=== PATIENT | female | born 1980 | race Caucasian/White ===

== ENCOUNTER 2019-08-20 15:13 | Emergency (ER) | payer OTHER ==
--- NOTE | 2019-08-20 15:33 | EDM.PDOC ---
ED HPI GENERAL MEDICAL PROBLEM - General Chief Complaint: Abdominal Pain Stated Complaint: LOWER BACK RT SIDE PAIN Time Seen by Provider: 08/20/19 15:32 Source of Information: Reports: Patient History Limitations: Reports: No Limitations - History of Present Illness INITIAL COMMENTS - FREE TEXT/NARRATIVE: HISTORY AND PHYSICAL: History of present illness: Patient is a 39-year-old female presents to the ED with complaint of flank pain. Patient states pain started this morning. Pain is in her right back/flank and wraps around to the right upper abdomen. She states pain comes and goes and there are no eliciting factors. She states she took some aleve and this did help. She denies fevers, chills, nausea, vomiting, chest pain, shortness of breath, diarrhea, constipation, hematuria, dysuria. She reports she just finished her period. Denies any history of abdominal surgeries. Review of systems: As per history of present illness and below otherwise all systems reviewed and negative. Past medical history: As per history of present illness and as reviewed below otherwise noncontributory. Surgical history: As per history of present illness and as reviewed below otherwise noncontributory. Social history: No reported history of drug or alcohol abuse. Family history: As per history of present illness and as reviewed below otherwise noncontributory. Physical exam: General: Patient sitting comfortably in no acute distress and nontoxic appearing HEENT: Atraumatic, normocephalic, pupils reactive, negative for conjunctival pallor or scleral icterus, mucous membranes moist, throat clear, neck supple, nontender, trachea midline. No meningeal signs. Lungs: Clear to auscultation, breath sounds equal bilaterally, chest nontender. Heart: S1S2, regular, negative for clicks, rubs, or overt murmur. Abdomen: Soft, nondistended, Minimal RUQ tenderness to palpation. Negative for masses or hepatosplenomegaly. Negative for costovertebral tenderness. No rigidity, rebound, guarding. Pelvis: Stable nontender. Genitourinary: Deferred. Rectal: Deferred. Extremities: Atraumatic, negative for cords or calf pain. Neurovascular unremarkable. Neuro: Awake, alert, oriented. Cranial nerves II through XII unremarkable. Cerebellum unremarkable. Motor and sensory unremarkable throughout. Exam nonfocal. Notes: Discussed with patient getting RUQ US and possibility of gallstones. Patient declines and states her pain is manageable with aleve and will follow up with her PCP for further evaluation. She was advised to return to the ED if any new or worsening symptoms. Diagnostics: CBC, CMP, lipase, UA Therapeutics: 1L NS IV Prescriptions: Impression: RUQ abdominal pain Plan: Alternate tylenol and motrin as needed Follow up with primary care provider Return to ED as needed as discussed Definitive disposition and diagnosis as appropriate pending reevaluation and review of above. R Flank Pain Score (Numeric/FACES): 7 - Related Data Allergies Allergy/AdvReac Type Severity Reaction Status Date / Time No Known Allergies Allergy Verified 08/20/19 15:28 Home Meds: Home Meds Sertraline [Zoloft] 10 mg PO DAILY 08/20/19 [History] ED ROS GENERAL - Review of Systems Review Of Systems: Comprehensive ROS is negative, except as noted in HPI. ED EXAM, RENAL/ - Physical Exam Exam: See Below (see dictation) Course - Vital Signs Last Recorded V/S: Last Vital Signs Temp 96.7 F L 08/20/19 15:16 Pulse 90 08/20/19 15:16 Resp 17 08/20/19 15:16 BP 136/77 08/20/19 15:16 Pulse Ox 98 08/20/19 15:16 - Orders/Labs/Meds Labs: Laboratory Tests 08/20/19 08/20/19 08/20/19 Range/Units 15:15 15:34 15:34 WBC 6.96 (4.0-11.0) K/uL RBC 4.78 (4.30-5.90) M/uL Hgb 14.1 (12.0-16.0) g/dL Hct 42.0 (36.0-46.0) % MCV 87.9 (80.0-98.0) fL MCH 29.5 (27.0-32.0) pg MCHC 33.6 (31.0-37.0) g/dL RDW Std Deviation 41.9 (28.0-62.0) fl RDW Coeff of Carlos 13 (11.0-15.0) % Plt Count 284 (150-400) K/uL MPV 10.00 (7.40-12.00) fL Neut % (Auto) 65.4 (48.0-80.0) % Lymph % (Auto) 21.7 (16.0-40.0) % Crowley % (Auto) 8.5 (0.0-15.0) % Eos % (Auto) 3.4 (0.0-7.0) % Baso % (Auto) 1.0 (0.0-1.5) % Neut # (Auto) 4.6 (1.4-5.7) K/uL Lymph # (Auto) 1.5 (0.6-2.4) K/uL Crowley # (Auto) 0.6 (0.0-0.8) K/uL Eos # (Auto) 0.2 (0.0-0.7) K/uL Baso # (Auto) 0.1 (0.0-0.1) K/uL Nucleated RBC % 0.0 /100WBC Nucleated RBCs # 0 K/uL Sodium 140 (136-145) mmol/L Potassium 3.9 (3.5-5.1) mmol/L Chloride 103 (98-107) mmol/L Carbon Dioxide 27.4 (21.0-32.0) mmol/L BUN 13 (7.0-18.0) mg/dL Creatinine 0.8 (0.6-1.0) mg/dL Est Cr Clr Drug Dosing 80.72 mL/min Estimated GFR (MDRD) > 60.0 ml/min Glucose 89 (74-106) mg/dL Calcium 8.8 (8.5-10.1) mg/dL Total Bilirubin 0.6 (0.2-1.0) mg/dL AST 22 (15-37) IU/L ALT 24 (14-63) IU/L Alkaline Phosphatase 56 (46-116) U/L Total Protein 7.3 (6.4-8.2) g/dL Albumin 4.2 (3.4-5.0) g/dL Globulin 3.1 (2.6-4.0) g/dL Albumin/Globulin Ratio 1.4 (0.9-1.6) Lipase 152 (73-393) U/L Urine Color YELLOW Urine Appearance CLEAR Urine pH 7.0 (5.0-8.0) Ur Specific [place] 1.010 (1.001-1.035) Urine Protein NEGATIVE (NEGATIVE) mg/dL Urine Glucose (UA) NEGATIVE (NEGATIVE) mg/dL Urine Ketones NEGATIVE (NEGATIVE) mg/dL Urine Occult Blood TRACE-INTACT H (NEGATIVE) Urine Nitrite NEGATIVE (NEGATIVE) Urine Bilirubin NEGATIVE (NEGATIVE) Urine Urobilinogen 0.2 (<2.0) EU/dL Ur Leukocyte Esterase NEGATIVE (NEGATIVE) Urine RBC 0-1 (0-2/HPF) Urine WBC 0-1 (0-5/HPF) Ur Epithelial Cells OCCASIONAL (NONE-FEW) Urine Bacteria RARE (NEGATIVE) Meds: Medications Discontinued Medications Generic Name Dose Route Start Last Admin Trade Name Stephanie PRN Reason Stop Dose Admin Sodium Chloride 1,000 mls @ 999 mls/hr 08/20/19 15:38 08/20/19 15:50 Normal Saline IV 08/20/19 16:38 999 mls/hr STAT ONE Administration Departure - Departure Time of Disposition: 16:42 Disposition: Home, Self-Care 01 Condition: Good Clinical Impression: RUQ abdominal pain - Discharge Information Referrals: Ebenezer Dunaway MD [Primary Care Provider] - Forms: ED Department Discharge Additional Instructions: The following information is given to patients seen in the emergency department who are being discharged to home. This information is to outline your options for follow-up care. We provide all patients seen in our emergency department with a follow-up referral. The need for follow-up, as well as the timing and circumstances, are variable depending upon the specifics of your emergency department visit. If you don't have a primary care physician on staff, we will provide you with a referral. We always advise you to contact your personal physician following an emergency department visit to inform them of the circumstance of the visit and for follow-up with them and/or the need for any referrals to a consulting specialist. The emergency department will also refer you to a specialist when appropriate. This referral assures that you have the opportunity for follow-up care with a specialist. All of these measure are taken in an effort to provide you with optimal care, which includes your follow-up. Under all circumstances we always encourage you to contact your private physician who remains a resource for coordinating your care. When calling for follow-up care, please make the office aware that this follow-up is from your recent emergency room visit. If for any reason you are refused follow-up, please contact the [facility] Emergency Department at and asked to speak to the emergency department charge nurse. [facility] [address] [place] [address] [facility] [address] [place] [id number] Alternate tylenol and motrin as needed Follow up with primary care provider Return to ED as needed as discussed Sepsis Event Note - Evaluation Sepsis Screening Result: No Definite Risk - Focused Exam Vital Signs: Vital Signs Temp Pulse Resp BP Pulse Ox 08/20/19 15:16 96.7 F L 90 17 136/77 98 Date Exam was Performed: 08/20/19 Time Exam was Performed: 16:40
[2019-08-20] MEDS ORDERED: Sodium Chloride 0.9% 1,000 ML IV ONE (15:38)
[2019-08-20 16:27] LABS: BLOOD UREA NITROGEN,BUN 13 mg/dL (7.0-18.0); CARBON DIOXIDE,CO2 27.4 mmol/L (21.0-32.0); CHLORIDE,CL 103 mmol/L (98-107); GLUCOSE RANDOM 89 mg/dL (74-106); LIPASE 152 U/L (73-393); POTASSIUM,K 3.9 mmol/L (3.5-5.1); SODIUM,NA 140 mmol/L (136-145)
[2019-08-20 17:01] VITALS: BP 116/81; PULSE 78
== END 2019-08-20 17:01 | disposition home or self-care (01) ==
LOC: MW.ED 15:13
DX: R10.11 Right upper quadrant pain (principal); Z79.899 Other long term (current) drug therapy
CPT/HCPCS: 36415; 80053; 81001; 83690; 85025; 99284; J7030; 99282

== ENCOUNTER 2021-07-17 09:28 | Day surgery (SDC) | payer OTHER ==
[~2021-07-17 09:28] MED LIST: Albuterol 0.083% 2.5 MG/3 ML Neb Soln NEB PRN; HYDROmorphone 1 MG/ML Syringe IVPUSH PRN; Lactated Ringers 1,000 ML IV SCH; Metoclopramide 10 MG/2 ML SDV IVPUSH PRN; Morphine 4 MG/ML VIAL IVPUSH PRN; Naloxone 0.4 MG/ML SDV IVPUSH PRN; Ondansetron 4 MG/2 ML SDV IVPUSH PRN; Scopolamine 1.5 MG Transdermal Patch ONE; Sodium Chloride 0.9% 10 ML Syringe FLUSH PRN; Sodium Chloride 0.9% 2.5 ML Syringe FLUSH PRN; Sodium Chloride 0.9% 20 ML SDV IV PRN; fentaNYL 100 MCG/2 ML SDV IVPUSH PRN
[2021-07-17] MEDS ORDERED: Propofol 200 MG/20 ML SDV ONE (10:02)
[2021-07-17] MEDS ORDERED: fentaNYL 250 MCG/5 ML SDV ONE (10:03)
[2021-07-17] MEDS ORDERED: Famotidine 20 MG/2 ML SDV ONE (10:27)
[2021-07-17] MEDS ORDERED: Ondansetron 4 MG/2 ML SDV ONE (11:08)
[2021-07-17] MEDS ORDERED: Dexamethasone 4 MG/ML 5 ML MDV ONE (11:08)
[2021-07-17] MEDS ORDERED: Ketorolac 30 MG/ML SDV ONE (11:08)
[2021-07-17] MEDS ORDERED: Ibuprofen 800 MG Tab PO ONE (12:26)
[2021-07-17] MEDS ORDERED: Ibuprofen 400 MG Tab PO ONE ×2 (12:45)
[2021-07-17 14:01] VITALS: BP 117/74; PULSE 86
== END 2021-07-17 13:05 | disposition home or self-care (01) ==
LOC: MW.SDS 09:28
PROVIDERS: ATTEND Obstetrics & Gynecology
DX: N93.9 Abnormal uterine and vaginal bleeding, unspecified (principal); N92.0 Excessive and frequent menstruation with regular cycle; E66.9 Obesity, unspecified; Z68.41 Body mass index [BMI] 40.0-44.9, adult; Z79.899 Other long term (current) drug therapy; Z90.89 Acquired absence of other organs; Z98.890 Other specified postprocedural states
CPT/HCPCS: 00952; A9270-GY; J1100; J1885; J2405; J2704; J3010; J3490; J7120